=== PATIENT | female | born 2000 | race Asian ===

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

== ENCOUNTER 2019-04-05 04:45 | Observation (INO) | payer OTHER ==
[~2019-04-05] VITALS: Ht 170.2 cm; Wt 77.6 kg
[2019-04-05 17:58] LABS: PLATELET COUNT 333 K/uL (152-353)
[2019-04-05 18:12] LABS: POTASSIUM 3.9 mmol/L (3.6-5.2)
[2019-04-05 18:28] VITALS: BP 123/84; TEMP 98; Ht 170.2 cm; Wt 77.6 kg
[2019-04-05 20:00] VITALS: BP 116/63; TEMP 97.9
[2019-04-06] VITALS (7 sets, daily range): BP systolic 101–124; BP diastolic 51–70; TEMP 97.5–98.8
[2019-04-07 04:00] VITALS: BP 111/52; TEMP 98.4
[2019-04-07 05:15] LABS: PLATELET COUNT 292 K/uL (152-353)
[2019-04-07 05:19] LABS: POTASSIUM 3.8 mmol/L (3.6-5.2)
[2019-04-07 08:00] VITALS: BP 116/71; TEMP 98.1
== END 2019-04-07 12:45 | disposition home or self-care (01) ==
LOC: MED/SURG 04:45
PROVIDERS: Internal Medicine; ADMIT Physician Assistant
DX: A04.5 Campylobacter enteritis (principal); R11.2 Nausea with vomiting, unspecified; A08.8 Other specified intestinal infections; E86.0 Dehydration
CPT/HCPCS: 80048; 80053; 81000; 81025; 82272; 84702; 85027; 87015; 87045; 87324; 87449; 87899; 96365; 96366; 96367; 99220; G0378; G0379; J0456